=== PATIENT | female | born 1990 | race Caucasian/White ===

== ENCOUNTER 2016-08-14 22:53 | Emergency (ER) | payer MEDICAID, OTHER ==
[~2016-08-14] VITALS: Ht 167.6 cm; Wt 54.4 kg
[~2016-08-14 22:53] MED LIST: CIPROFLOXACIN500 M2 ORAL; KEFLEX500 MG ORAL
[2016-08-14 23:12] VITALS: BP 101/65
[2016-08-15 00:47] LABS: APPEARANCE,URINE CLEAR; KETONES,URINE NEGATIVE (NEGATIVE); LEUKOCYTE ESTERASE ,URINE NEGATIVE (NEGATIVE); NITRITE,URINE NEGATIVE (NEGATIVE); PH,URINE 8 (4.5-8.0); PROTEIN,URINE NEGATIVE (NEGATIVE); UROBILINOGEN,URINE NORMAL MG/DL (0.0-1.0)
[2016-08-15] MEDS ORDERED: IBUPROFEN600 MG ORAL (01:42)
--- NOTE | 2016-08-15 01:43 | Emergency Room Report ---
History of Present Illness General Chief Complaint: Abdominal Pain Source: Patient Present Illness HPI Is a 26-year-old female with no past history. She presents with chief complaint of left flank/abdominal pain for 2 weeks. Worse with certain movement. It is aching in nature. No fever or chills. No nausea or vomiting. Pain is 7/10. She has not take anything for this. Allergies: Coded Allergies: No Known Allergies (Unverified , 11/21/13) Patient History Past Medical History: see triage record, old chart reviewed Past Surgical History: none Pertinent Family History: none Social History: Denies: smoking Last Menstrual Period: "MAYBE A WEEK AGO" Now: No : 0 Para: 0 Immunizations: other Reviewed Nursing Documentation: PMH: Agreed, PSxH: Agreed Review of Systems Eye: Denies: blurred vision, eye pain ENT: Denies: ear pain, nose congestion, throat swelling Respiratory: Denies: cough, shortness of breath Cardiovascular: Denies: chest pain, palpitations Gastrointestinal: Denies: abdominal pain, diarrhea, nausea, vomiting Musculoskeletal: Denies: back pain, joint pain Skin: Denies: rash Neurological: Denies: headache, numbness Endocrine: Denies: increased thirst, increased urine Hematologic/Lymphatic: Denies: easy bruising All Other Systems: negative except mentioned in HPI Physical Exam Vital Signs Date Time Temp Pulse Resp B/P Pulse Ox O2 Delivery O2 Flow Rate FiO2 08/14/16 22:59 97.7 78 18 101/65 98 Room Air vitals normal Sp02 EP Interpretation: reviewed, normal General Appearance: well appearing, no apparent distress, alert Head: normocephalic, atraumatic Eyes: bilateral eye EOMI, bilateral eye PERRL ENT: hearing grossly normal, normal pharynx Neck: full range of motion, supple, no meningismus Respiratory: chest non-tender, lungs clear, normal breath sounds Cardiovascular #1: regular rate, rhythm, no murmur Gastrointestinal: normal bowel sounds, non tender, no mass, no organomegaly, no bruit, non-distended Musculoskeletal: back normal, gait/station normal, normal range of motion Psychiatric: mood/affect normal Skin: warm/dry Medical Decision Making Diagnostic Impression: Primary Impression: Back pain Qualified Codes: M54.5 - Low back pain ER Course Patient with back pain. Most likely also self in nature. No evidence of any fracture dislocation. No evidence of cauda equina syndrome, spinal epidural abscess or neoplastic process. No evidence of infection CT/MRI/US Diagnostic Results CT/MRI/US Diagnostic Results : Imaging Test Ordered: CT abdomen and pelvis Impression Read by radiologist. 2 cm ovarian cyst on the left. No acute process. Last Vital Signs Date Time Temp Pulse Resp B/P Pulse Ox O2 Delivery O2 Flow Rate FiO2 08/14/16 23:12 97.7 87 18 101/65 98 Room Air Status: improved Disposition: HOME, SELF-CARE Scripts Ibuprofen* (MOTRIN*) 600 Mg Tablet 600 MG ORAL THREE TIMES A DAY, #30 TAB 0 Refills Prov: LUC GARDNER M.D. 08/15/16 Referrals: [facility],REFERRING (PCP) Additional Instructions: Followup with your DrDestiney in 7 days. Return if worse. LUC GARDNER M.D. August 15, 2016 01:43
[2016-08-15 01:46] VITALS: BP 108/60
[2016-08-15 01:47] VITALS: BP 108/60
--- NOTE | 2016-08-16 08:39 | Diagnostic Imaging Report ---
Indication: Abdominal pain Technique: Spiral acquisitions obtained through the abdomen and pelvis. No oral contrast utilized, per emergency room physician request No IV contrast utilized, per referring physician request.. Multiplanar reconstructions were generated. Total dose length product 613 mGycm. CTDIvol(s) 13 mGy. Dose reduction achieved using automated exposure control Comparison: None Findings: Lack of enteric contrast limits assessment of the GI tract. There is considerable retained stool. No evidence of diverticulosis or diverticulitis. The appendix is normal. No small bowel distention. No free or loculated intraperitoneal air or fluid is evident. The distal esophagus, stomach, duodenum none are unremarkable. The lack of IV contrast limits assessment of solid organs. Gallbladder is nondistended. Bile ducts are unremarkable. The liver, pancreas, spleen, adrenals, kidneys are unremarkable. No mesenteric or retroperitoneal mass or adenopathy. Prominent follicle is seen in the left ovary. There is an intrauterine device. No pelvic mass or adenopathy. The bladder is unremarkable. The included lung bases are clear. The bones are unremarkable. Impression: Possible constipation. Correlate with clinical findings No acute process otherwise Intrauterine device This agrees with the preliminary interpretation provided overnight by [facility] teleradiology service. The CT scanner at [facility] is accredited by the [employer] and the scans are performed using protocols designed to limit radiation exposure to as low as reasonably achievable to attain images of sufficient resolution adequate for diagnostic evaluation.
== END 2016-08-15 01:48 | disposition home or self-care (01) ==
LOC: EMR 23:47
DX: M54.9 Dorsalgia, unspecified (principal); R10.9 Unspecified abdominal pain; Z97.5 Presence of (intrauterine) contraceptive device
CPT/HCPCS: 74176; 81003; 81025; 99284